=== PATIENT | female | born 1990 | race Caucasian/White ===

== ENCOUNTER 2016-11-08 22:01 | Emergency (ER) | payer OTHER ==
[2016-11-09 00:44] LABS: HEMOGLOBIN 15.2 gm/dl (12.3-15.3); RED BLOOD COUNT 4.5 M/UL (4.00-5.10)
[2016-11-09 01:01] LABS: BUN/CREATININE RATIO 28 (0-10)
[2016-11-11] MEDS ORDERED: DICYCLOMINE HCL20 MG PO (09:24)
[2016-11-11] MEDS ORDERED: MULTIVITAMINS1 EAC1 PO (09:24)
[2016-11-11] MEDS ORDERED: PERCOCET 7.5-31 EACH PO (09:26)
[2016-11-11] MEDS ORDERED: PERCOCET 5-3251 EACH PO (12:44)
== END 2016-11-09 05:37 | disposition home or self-care (01) ==
LOC: ER1 22:01
PROVIDERS: Family Medicine
DX: K80.70 Calculus of gallbladder and bile duct without cholecystitis without obstruction (principal); I10 Essential (primary) hypertension; F17.210 Nicotine dependence, cigarettes, uncomplicated
CPT/HCPCS: 36415; 76705; 80053; 81001; 83690; 84703; 85025; 87086; 96361; 96374; 96376; 99284; J2270; J2405

== ENCOUNTER → 2016-11-11 | Day surgery (SDC) | payer OTHER ==
[~2016-11-11] MED LIST: DICYCLOMINE HCL20 MG PO; MULTIVITAMINS1 EAC1 PO; PERCOCET 5-3251 EACH PO; PERCOCET 7.5-31 EACH PO
== END | disposition home or self-care (01) ==
LOC: OR 08:45
PROVIDERS: Surgery
PROC: BF13YZZ Fluoroscopy of Gallbladder and Bile Ducts using Other Contrast (ICD-10-PCS; 2016-11-11)
PROC: 0FT44ZZ Resection of Gallbladder, Percutaneous Endoscopic Approach (ICD-10-PCS; principal; 2016-11-11 09:00)
DX: K80.10 Calculus of gallbladder with chronic cholecystitis without obstruction (principal); I10 Essential (primary) hypertension; J45.20 Mild intermittent asthma, uncomplicated; J40 Bronchitis, not specified as acute or chronic; F17.210 Nicotine dependence, cigarettes, uncomplicated; Z82.49 Family history of ischemic heart disease and other diseases of the circulatory system; Z79.891 Long term (current) use of opiate analgesic; Z79.899 Other long term (current) drug therapy; Z90.89 Acquired absence of other organs; Z98.84 Bariatric surgery status
CPT/HCPCS: 47531; 84703; 94664; J0295; J1200; J1885; J2250; J2405; J2710; J2765; J3010; J7030; J7050; J7120; Q9962

== ENCOUNTER 2017-05-16 16:51 | Emergency (ER) | payer OTHER ==
[2017-05-16 18:02] LABS: HEMOGLOBIN 12.7 gm/dl (12.3-15.3); RED BLOOD COUNT 3.9 M/UL (4.00-5.10); WHITE BLOOD COUNT 6.7 K/UL (4.5-11.0)
[2017-05-16 18:23] LABS: BUN/CREATININE RATIO 11 (0-10)
== END 2017-05-16 20:21 | disposition home or self-care (01) ==
LOC: ER1 16:51
PROVIDERS: Physician Assistant
DX: L02.416 Cutaneous abscess of left lower limb (principal); N39.0 Urinary tract infection, site not specified; F17.200 Nicotine dependence, unspecified, uncomplicated; Z90.49 Acquired absence of other specified parts of digestive tract
CPT/HCPCS: 10060; 36415; 71010; 80053; 81001; 83605; 85025; 87040; 96361; 96374; 96375; 99283; J2270; J2405

== ENCOUNTER 2021-06-08 20:13 | Emergency (ER) | payer OTHER ==
[~2021-06-08 20:13] MED LIST changes: +KEFLEX500 MG PO
[2021-06-08 21:18] LABS: HEMOGLOBIN 13.1 gm/dl (12.3-15.3); RED BLOOD COUNT 4.19 M/UL (4.00-5.10); WHITE BLOOD COUNT 9.2 K/UL (4.5-11.0)
[2021-06-08 21:40] LABS: BUN/CREATININE RATIO 16 (0-10)
[2021-06-09] MEDS ORDERED: PRENATAL VITAM1 EAC3 PO (00:02)
[2021-06-11 01:11] LABS: CHLAMYDIA TRACHOMATIS, NAA Negative (Negative); NEISSERIA GONORRHOEAE, NAA Negative (Negative)
== END 2021-06-09 00:08 | disposition home or self-care (01) ==
LOC: ER1 20:13
PROVIDERS: Emergency Medicine
DX: O34.81 Maternal care for other abnormalities of pelvic organs, first trimester (principal); N83.202 Unspecified ovarian cyst, left side; O99.333 Smoking (tobacco) complicating pregnancy, third trimester; F17.200 Nicotine dependence, unspecified, uncomplicated; Z90.49 Acquired absence of other specified parts of digestive tract
CPT/HCPCS: 76817; 80053; 81001; 83690; 84702; 85025; 86900; 86901; 87210; 99284